=== PATIENT | female | born 1970 | race Caucasian/White ===

== ENCOUNTER 2024-03-22 10:43 | Emergency (ER) | payer OTHER ==
[2024-03-22] MEDS ORDERED: HYDROMORPHONE HCL 1 MG/ML INJ ONE (11:11)
[2024-03-22] MEDS ORDERED: CYCLOBENZAPRINE 10 MG TAB ONE (11:11)
[2024-03-22] MEDS ORDERED: KETOROLAC 30 MG/ML INJ ONE (11:11)
[2024-03-22] MEDS ORDERED: ONDANSETRON 4 MG/2 ML VIAL ONE (11:11)
--- NOTE | 2024-03-22 12:56 | RAD REPORT ---
EXAM DESCRIPTION: RAD - Lumbar Spine 3 Views - 03/22/2024 12:24 pm CLINICAL HISTORY: Back pain FINDINGS: No fracture or dislocation is seen. For lumbar vertebra. Mild posterior subluxation L4 on S1
--- NOTE | 2024-03-22 13:11 | EDPHYS ---
Physician Documentation [facility] Name: Felecia Valdes Age: 54 yrs Sex: Female : 1970 Arrival Date: 03/22/2024 Time: 10:43 Bed 20 Private MD: ED Physician Mery Brown HPI: 03/22 11:27 This 54 yrs old Female presents to ER via Ambulatory with complaints of Back Pain. sp3 11:27 54-year-old female with chronic back pain, lumbar disc disease and prior "muscle spasm" sp3 now presents to the ED for lower back pain and muscle spasm due to her "trying to get her locks open through the sunroof of her 's vehicle yesterday." She is currently laying supine with her knees in the air saying that her lower back is spasming. Her son had to bring her to the ED. She denies any other symptoms including loss of bowel or bladder control, neurological symptoms including numbness and tingling, or any other injuries. Remainder of ROS negative at this time.. Historical: - Allergies: 10:58 PENICILLINS; cm10 - PMHx: 10:58 Chronic back pain; cm10 - Immunization history:: Adult Immunizations up to date. - Infectious Disease History:: Denies. - Social history:: Smoking status: Patient reports the use of cigarette tobacco products, smokes one-half pack cigarettes per day. ROS: 11:28 Constitutional: Negative for fever, chills, and weight loss, Eyes: Negative for injury, sp3 pain, redness, and discharge, Neck: Negative for injury, pain, and swelling, Cardiovascular: Negative for chest pain, palpitations, and edema, Respiratory: Negative for shortness of breath, cough, wheezing, and pleuritic chest pain, Abdomen/GI: Negative for abdominal pain, nausea, vomiting, diarrhea, and constipation, MS/Extremity: Negative for injury and deformity, Skin: Negative for injury, rash, and discoloration, Neuro: Negative for headache, weakness, numbness, tingling, and seizure, Psych: Negative for depression, anxiety, suicide ideation, homicidal ideation, and hallucinations, Allergy/Immunology: Negative for hives, rash, and allergies, Endocrine: Negative for neck swelling, polydipsia, polyuria, polyphagia, and marked weight changes, Hematologic/Lymphatic: Negative for swollen nodes, abnormal bleeding, and unusual bruising, 11:28 All other systems are negative, Exam: 11:28 Constitutional: This is a well developed, well nourished patient who is awake, alert, sp3 and in no acute distress. Head/Face: Normocephalic, atraumatic. Eyes: Pupils equal round and reactive to light, extra-ocular motions intact. Lids and lashes normal. Conjunctiva and sclera are non-icteric and not injected. Cornea within normal limits. Periorbital areas with no swelling, redness, or edema. Neck: Trachea midline, no thyromegaly or masses palpated, and no cervical lymphadenopathy. Supple, full range of motion without nuchal rigidity, or vertebral point tenderness. No Meningismus. Chest/axilla: Normal chest wall appearance and motion. Nontender with no deformity. No lesions are appreciated. Cardiovascular: Regular rate and rhythm with a normal S1 and S2. No gallops, murmurs, or rubs. Normal PMI, no JVD. No pulse deficits. Respiratory: Lungs have equal breath sounds bilaterally, clear to auscultation and percussion. No rales, rhonchi or wheezes noted. No increased work of breathing, no retractions or nasal flaring. Abdomen/GI: Soft, non-tender, with normal bowel sounds. No distension or tympany. No guarding or rebound. No evidence of tenderness throughout. Skin: Warm, dry with normal turgor. Normal color with no rashes, no lesions, and no evidence of cellulitis. MS/ Extremity: Pulses equal, no cyanosis. Neurovascular intact. Full, normal range of motion. Neuro: Awake and alert, GCS 15, oriented to person, place, time, and situation. Cranial nerves II-XII grossly intact. Motor strength 5/5 in all extremities. Sensory grossly intact. Cerebellar exam normal. Normal gait. Psych: Awake, alert, with orientation to person, place and time. Behavior, mood, and affect are within normal limits. 11:28 Back: Muscle spasm noted on lower back. Diffuse pain to palpation of the lower back. No bony step-offs or bony tenderness noted. Neurological exam is normal., Vital Signs: 10:55 BP 173 / 92; Pulse 68; Resp 19; Temp 97.3; Pulse Ox 100% ; Weight 72.57 kg; Height 5 cm10 ft. 0 in. ; Pain 10/; 13:57 BP 132 / 77; Pulse 50; Resp 16; Pulse Ox 100% ; bp 10:55 Body Mass Index 31.25 (72.57 kg, 152.4 cm) cm10 10:55 Pain Scale: Adult cm10 MDM: 10:47 Patient medically screened. sp3 11:29 Data reviewed: vital signs, nurses notes, radiologic studies. ED course: 54-year-old sp3 female with chronic back pain now with probable acute muscular strain or spasm. Differential diagnosis includes muscle spasm, muscle strain, disc related compression/radiculopathy, among others. I am not highly suspicious of fracture, infection or other critical pathology. Workup will include x-rays of the lumbar spine and treatment with intravenous Dilaudid, ketorolac, ondansetron and p.o. Flexeril. Disposition pending workup and patient course with probable discharge home.. 13:06 ED course: Patient improved. X-ray is negative. We will safely discharge home at this sp3 time.. 03/22 11:02 Order name: Lumbar Spine (3 Views) XRAY; Complete Time: 13:03 sp3 03/22 11:02 Order name: IV Saline Lock; Complete Time: 11:08 sp3 Administered Medications: 11:17 Drug: Ketorolac IVP 30 mg IVP once Route: IVP; Site: right antecubital; bp 13:57 Follow up: Response: No adverse reaction bp 11:17 Drug: HYDROmorphone IVP 1 mg IVP once Route: IVP; Site: right antecubital; bp 13:57 Follow up: Response: No adverse reaction bp 11:17 Drug: Ondansetron IVP 4 mg IVP once; over 2 minutes Route: IVP; Site: right antecubital;bp 13:57 Follow up: Response: No adverse reaction bp 11:17 Drug: Cyclobenzaprine PO 10 mg PO once Route: PO; bp 13:57 Follow up: Response: No adverse reaction bp 13:57 Drug: HYDROcodone-acetaminophen PO 5 mg-325 mg 2 tabs PO once Route: PO; bp 13:57 Follow up: Response: No adverse reaction bp Disposition Summary: 03/22/24 13:10 Discharge Ordered Notes: Location: Home sp3 Condition: Stable sp3 Diagnosis - Lumbar strain and spasm sp3 Followup: sp3 - With: Private Physician - When: Upon discharge from the Emergency Department - Reason: Continuance of care Discharge Instructions: - Discharge Summary Sheet sp3 - Muscle Cramps and Spasms sp3 Forms: - Medication Reconciliation Form sp3 - Antibiotic Education sp3 - Prescription Opioid Use sp3 - Patient Portal Instructions sp3 - Leadership Thank You Letter sp3 Prescriptions: - Tramadol 50 mg Oral Tablet - take 1 tablet ORAL route every 8 hours as needed; 12 tablet; Refills: 0, sp3 Product Selection Permitted - Cyclobenzaprine 5 mg Oral Tablet - take 1 tablet ORAL route 3 times per day As needed; 15 tablet; Refills: 0, sp3 Product Selection Permitted Signatures: Dispatcher [employer] Remington Murrell, RN RN Mery Gann MD MD sp3 Leslie Quesada RN RN cm10 Corrections: (The following items were deleted from the chart) 11:02 11:02 Lumbar Spine 3 Views+[email or web address] ordered. EDNH EDMS
--- NOTE | 2024-03-22 13:11 | ER ---
Nurse's Notes [facility] Name: Felecia Valdes Age: 54 yrs Sex: Female : 1970 Arrival Date: 03/22/2024 Time: 10:43 Bed 20 Private MD: Diagnosis: Lumbar strain and spasm Presentation: 03/22 10:55 Chief complaint: Patient states: Low back pain onset yesterday. Pt states that the pain cm10 is worse with movement, unable to sit. Pt reports numbness down left leg. Coronavirus screen: Client denies travel out of the [place] in the last 14 days. Ebola Screen: Patient denies travel to an Ebola-affected area in the 21 days before illness onset. No symptoms or risks identified at this time. Initial Sepsis Screen: Does the patient meet any 2 criteria? No. Patient's initial sepsis screen is negative. Does the patient have a suspected source of infection? No. Patient's initial sepsis screen is negative. Risk Assessment: Do you want to hurt yourself or someone else? Patient reports no desire to harm self or others. Onset of symptoms was March 22, 2024. 10:55 Method Of Arrival: Ambulatory cm10 10:55 Acuity: MONICA 3 cm10 Triage Assessment: 10:58 General: Appears in no apparent distress. uncomfortable, Behavior is calm, cooperative. cm10 Neuro: Level of Consciousness is awake, alert, obeys commands, Oriented to person, place, time, situation, Appropriate for age. Respiratory: No deficits noted. Airway is patent Respiratory effort is even, unlabored, Respiratory pattern is regular, symmetrical. Historical: - Allergies: 10:58 PENICILLINS; cm10 - PMHx: 10:58 Chronic back pain; cm10 - Immunization history:: Adult Immunizations up to date. - Infectious Disease History:: Denies. - Social history:: Smoking status: Patient reports the use of cigarette tobacco products, smokes one-half pack cigarettes per day. Screenin:19 [facility] ED Fall Risk Assessment (Adult) History of falling in the last 3 months, bp including since admission No falls in past 3 months (0 pts) Confusion or Disorientation No (0 pts) Intoxicated or Sedated No (0 pts) Impaired Gait No (0 pts) Mobility Assist Device Used No (0 pt) Altered Elimination No (0 pt) Score/Fall Risk Level 0 - 2 = Low Risk. Abuse screen: Denies threats or abuse. Denies injuries from another. Nutritional screening: No deficits noted. Tuberculosis screening: No symptoms or risk factors identified. Assessment: 11:00 General: Appears uncomfortable, Behavior is cooperative, appropriate for age, anxious. bp Pain: Complains of pain in back. Neuro: Level of Consciousness is awake, alert, obeys commands, Oriented to Appropriate for age Gait is steady. Cardiovascular: No deficits noted. Respiratory: No deficits noted. GI: No signs and/or symptoms were reported involving the gastrointestinal system. : No signs and/or symptoms were reported regarding the genitourinary system. EENT: No deficits noted. Derm: No deficits noted. Musculoskeletal: Circulation, motion, and sensation intact. Vital Signs: 10:55 BP 173 / 92; Pulse 68; Resp 19; Temp 97.3; Pulse Ox 100% ; Weight 72.57 kg; Height 5 cm10 ft. 0 in. ; Pain 10/10; 13:57 BP 132 / 77; Pulse 50; Resp 16; Pulse Ox 100% ; bp 10:55 Body Mass Index 31.25 (72.57 kg, 152.4 cm) cm10 10:55 Pain Scale: Adult cm10 ED Course: 10:45 Patient arrived in ED. mg5 10:46 Mery Brown MD is Attending Physician. sp3 10:47 Remington Landaverde, VICTORIA is Primary Nurse. bp 10:58 Triage completed. cm10 10:59 Arm band placed on Patient placed in an exam room, on a stretcher. cm10 11:09 Inserted saline lock: 20 gauge in right antecubital area, using aseptic technique. bc6 Flushed with 10 mL NS. 11:19 Patient has correct armband on for positive identification. bp 12:26 Lumbar Spine (3 Views) XRAY In Process Unspecified. EDMS 13:58 No provider procedures requiring assistance completed. IV discontinued, intact, bp bleeding controlled, No redness/swelling at site. Pressure dressing applied. Administered Medications: 11:17 Drug: Ketorolac IVP 30 mg IVP once Route: IVP; Site: right antecubital; bp 13:57 Follow up: Response: No adverse reaction bp 11:17 Drug: HYDROmorphone IVP 1 mg IVP once Route: IVP; Site: right antecubital; bp 13:57 Follow up: Response: No adverse reaction bp 11:17 Drug: Ondansetron IVP 4 mg IVP once; over 2 minutes Route: IVP; Site: right antecubital;bp 13:57 Follow up: Response: No adverse reaction bp 11:17 Drug: Cyclobenzaprine PO 10 mg PO once Route: PO; bp 13:57 Follow up: Response: No adverse reaction bp 13:57 Drug: HYDROcodone-acetaminophen PO 5 mg-325 mg 2 tabs PO once Route: PO; bp 13:57 Follow up: Response: No adverse reaction bp Outcome: 13:10 Discharge ordered by MD. méndez 13:58 Discharged to home ambulatory, bp 13:58 Condition: stable 13:58 Discharge instructions given to patient, Instructed on discharge instructions, follow up and referral plans. medication usage, Demonstrated understanding of instructions, follow-up care, medications, Prescriptions given X 2, 13:58 Patient left the ED. bp Signatures: Dispatcher [employer] EDRemington Paige, RN RN bp Mery Brown MD MD sp3 Dyana Morley bc6 Leslie Quesada RN RN cm10 Laurie Koch mg5
[2024-03-22] MEDS ORDERED: HYDROCODONE/APAP 5/325 MG TAB ONE (13:53)
[2024-03-22 14:14] VITALS: TEMP 97.3; O2SAT 100
[2024-03-22 14:17] VITALS: BP 132/77
== END 2024-03-22 13:58 | disposition home or self-care (01) ==
LOC: ER 10:43
DX: S39.012A Strain of muscle, fascia and tendon of lower back, initial encounter (principal); M62.830 Muscle spasm of back; F17.210 Nicotine dependence, cigarettes, uncomplicated
CPT/HCPCS: 72100; 96375; 96374; 99284; J1170; J2405